=== PATIENT | male | born 1975 | race Caucasian/White ===

== ENCOUNTER 2020-06-26 21:26 | Emergency (ER) | payer SELFPAY ==
[2020-06-26 21:27] VITALS: BP 140/78; PULSE 87; RESP 18; TEMP 36.7; O2SAT 100; BMI 25.0
--- NOTE | 2020-06-26 21:30 | HMH.EDGENADL ---
ED Disposition Clinical Impression: Laceration Disposition: Home, Self-Care Condition on Discharge: Good Additional Instructions: Keep steri strips clean, dry, and in tact over the next several days. Return if concerns. Referrals: Girish Reyes MD [Primary Care Provider] - - Critical Care Critical Care Time: No Attestation: On , the high probability of a clinically significant, sudden or life threatening deterioration of the following system(s) required my full and direct attention, intervention and personal management. The time I documented below is in addition to time spent performing reported procedures but includes the following listed in this critical care notation. Medical Decision Making - Medical Records Medical records reviewed: Yes: I reviewed the patient's medical records. - Juvencio Inquiry Pt receiving controlled substance: No Medical Decision Narrative: Patient presents after sustaining a laceration to the left thumb. No reduced range of motion. Circulation, sensory, and motor intact to left thumb. Extensively explored after irrigation and is rather superficial. No indication for suture repair. Steri-Strips applied. Tetanus updated. Patient given instructions on appropriate wound care. He will follow up with PCP for recheck. He agrees. Return immediately if any redness/erythema at the site, pain at the site, reduced range of motion, or other new concerning symptoms. Assessment: Left thumb laceration status post Steri-Strip repair Tdap Disposition: Home with follow-up General Adult HPI - General Stated complaint: [id number] left thumb laceration Time Seen by Provider: 06/26/20 21:35 - History of Present Illness HPI narrative: Patient 45-year-old healthy male not up-to-date on tetanus presenting with laceration. 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 No reduced range of motion. No significant pain. No other injury sustained. Patient applied peroxide to the wound after it presents the emergency department to be evaluated for need for stitches. - Related Data Home Medications Medication Instructions Recorded Confirmed No Known Home Medications 06/12/20 06/12/20 Allergies Allergy/AdvReac Type Severity Reaction Status Date / Time penicillin G Allergy Mild Verified 06/12/20 13:01 [facility] History - Hepatitis A Screen Attestation statement:: This patient has been screened for Hepatitis A risk factors. Amputation: No Fractures: No Comment: rt Elbow - Social History Smoking Status: Current some day smoker Tobacco Type: cigarettes Alcohol Intake: current Alcohol Intake Frequency:: holidays/special occasions only Substance Use Type: denies use Occupational Status: employed Family Hx:: No significant family history ROS Obtained: Yes All systems reviewed & no additional complaints Physical Exam - General General appearance: alert, in no apparent distress - Head Head exam: atraumatic, normocephalic - Eye Eye exam: Present: normal appearance, PERRL - ENT ENT exam: Present: normal exam, normal oropharynx - Neck Neck exam: Present: normal inspection, full ROM - Chest Chest inspection: Present: normal inspection, symmetric chest wall rise - Respiratory Respiratory exam: Present: normal lung sounds bilaterally. Absent: respiratory distress - Cardiovascular Cardiovascular exam: Present: regular rate, normal rhythm - Abdominal Exam Abdominal exam: Present: soft. Absent: distention, tenderness - Extremities Exam Extremities exam: Present: normal inspection, full ROM, other (L thumb with 1 cm superficial laceration overlying dorsum of thumb base; no reduced ROM) - Neurological Exam Neurological exam: Present: alert, oriented X3 - Skin Skin exam: Present: warm, dry, other (see extremities) Procedures - Laceration Laceration 1 Site: thumb Side (If applicable): left Size
[2020-06-26 22:00] VITALS: BP 0/0; PULSE 0; RESP 0; TEMP -17.7; TEMP 0
--- NOTE | 2020-06-26 22:00 | PC.NURSE ---
pt and refused to stay for discharge paperwork and tetanus shot. MD notified
== END 2020-06-26 22:02 | disposition home or self-care (01) ==
PROVIDERS: Emergency Provider Emergency Medicine; PCP Family Medicine
DX: S61.012A Laceration without foreign body of left thumb without damage to nail, initial encounter (principal); W26.0XXA Contact with knife, initial encounter; Y92.9 Unspecified place or not applicable; F17.210 Nicotine dependence, cigarettes, uncomplicated
CPT/HCPCS: 99282

== ENCOUNTER → 2020-08-08 14:41 | Outpatient (CLI) | payer SELFPAY | PROVIDERS: PCP Family Medicine; Visit Provider Surgery | DX: Z01.812 Encounter for preprocedural laboratory examination (principal); Z11.52 Encounter for screening for COVID-19 | CPT/HCPCS: U0003 ==

== ENCOUNTER 2020-08-11 06:10 | Day surgery (SDC) | payer SELFPAY ==
[2020-08-06 10:38] VITALS: BMI 25.0
[2020-08-11] VITALS (8 sets, daily range): BP systolic 92–126; BP diastolic 42–79; PULSE 63–72; RESP 12–20; TEMP 36.1–36.6; O2SAT 95–100
--- NOTE | 2020-08-11 06:50 | HMH.ANESCL ---
[facility] Anesthesia Checklist - Patient Identification Patient Identification: Arm Band - Structural Data Admitted From: Home Planned Operative Procedure/s: Mass excision Consent for Planned Operative Procedure(s) Verified: Yes - NPO Status Verified Time NPO: 00:00 - Additional verifications Anesthesia Reactions: No Hx Blood Transfusions: No Blood Transfusion Reaction: No - Airway Assessment C-Spine Mobility Assessed: Yes TMJ Mobility Assessed: Yes Dentition: Good Dentition - Neurological Assessment Level of Consciousness: Awake Hx Seizures: No Numbness or tingling in extremities: No - Anesthesia Plan Anesthesia Risk discussed: Yes Anesthesia Plan: Verified ASA Class: II Anesthesia Type: General [facility] History I have reviewed the patient's past medical history: Yes Medical History: Reports:: Asthma Denies:: Cancer, Diabetes Mellitus Type 1, Diabetes Mellitus Type 2, Internal Pacemaker, MRSA, Seizures *Have you ever received a pneumonia vaccine?: No *Have you received a flu vaccine this season?: No Other Medical History: Denies: Blood Transfusion Reaction Anesthesia experience/problems:: None Laterality Cases: Right: Other Other Surgeries: No: Pacemaker Amputation: No Fractures: No - *Social History Last grade of school completed: High school graduate Smoking Status: Current every day smoker Tobacco Type: cigarettes # Packs/Day (cigarettes): 1 Alcohol Intake: current Alcohol Intake Frequency:: holidays/special occasions only Substance Use Type: denies use *Occupational Status:: employed Housing: house Household Members: spouse, children *Travel in the last 8 weeks: Inside the [employer] Family Hx:: Cancer
--- NOTE | 2020-08-11 08:00 | HMH.OPNOTE ---
Date of procedure: 08/11/20 Pre-op Diagnosis:: Lipoma right back Post-op Diagnosis:: Same Procedure performed:: Excision of lipoma from the right back (excisional length 5.0 cm) with intermediate complexity closure Surgeon:: Jose De Jesus Saeed MD POLYGRAPH EXAMINER:: Other Anesthesia: LMA Estimated blood loss (mL): 5 Clinical Note:: Patient is a 45-year-old male referred for lipoma on the right mid back by [employer] 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 He states that he has had a knot present for at least 5 years. It has increased in size and become symptomatic. Operative findings:: Consistent with lobular lipoma down to the muscle posterior to the fascia Operative note:: Patient was taken to the operating room. He was positioned supine position. General anesthesia was induced via LMA. The area was prepped and draped in the standard surgical fashion. Lesion was marked with a skin marker for planned incision. Incision was performed. Dissection was carried down through superficial subcutaneous tissues. Fascia was incised. It was lobulated lipoma encountered. This was somewhat adherent to the muscle and surrounding deep tissues. Using Metzenbaum and blunt dissection with some use of electrocautery it was dissected free. It appeared as though it was removed in its entirety and intact. Lesion was sent off as a specimen. Hemostasis was achieved with electrocautery. Wound was irrigated. Local anesthetic was infiltrated. 2-0 Vicryl suture was used to reapproximate the muscle fascia. Subcutaneous fascia was then closed with multiple interrupted 2-0 Vicryl. Skin was closed with 4-0 Monocryl in a subcuticular fashion. Steri-Strips and dressings were applied. Condition: stable Disposition: PACU Specimens:: Lipoma Complications:: None immediately apparent
--- NOTE | 2020-08-11 08:29 | PC.NURSE ---
0821-detailed report called to APRIL Lange 0801-pt transported to post op via stretcher w/sheryl rails up and left in care of APRIL Lange and APRIL Barnes with bed locked in lowest position, vss, pt stable
--- NOTE | 2020-08-11 15:39 | HMH.ANESI ---
[facility] Anesthesia Record Part I Intake, IV Amount: 1,000 Estimated blood loss (mL): 5 Urine output (mL): 0 Blood Pressure: 113/79 SaO2: 95 Pulse Rate: 72 Respiratory Rate: 12 Temperature: 97.0 F Patient is:: Awake, Drowsy Stable to PACU at:: 08:05
--- NOTE | 2020-08-12 12:19 | HMH.ANESII ---
[facility] Anesthesia Record Part II Discharge Time: 08:25 Destination: Surgical Day Care (OP Surgery) PACU nurse assessment reviewed?: Yes Patient Condition:: Good Anesthesia Complications:: None Swallowing reflex intact?: Yes Cyanosis?: No Blood Pressure: 101/66 Pulse Rate: 66 Temperature: 97.1 F Mental Status: Alert & Oriented Pain level:: 0 Nausea and/or vomitting:: None Intake, IV Amount: 0
[2020-08-12 12:20] VITALS: BP 101/66; PULSE 66; TEMP 36.2
== END 2020-08-11 08:49 | disposition home or self-care (01) ==
PROVIDERS: PCP Family Medicine; Visit Provider Surgery
PROC: (CPT 11406; principal; 2020-08-11 07:30)
DX: D17.1 Benign lipomatous neoplasm of skin and subcutaneous tissue of trunk (principal); J45.909 Unspecified asthma, uncomplicated; Z80.9 Family history of malignant neoplasm, unspecified; Z72.0 Tobacco use; Z88.0 Allergy status to penicillin
CPT/HCPCS: 11406; 12031; 96374; J2405

== ENCOUNTER 2021-01-01 07:42 | Emergency (ER) | payer SELFPAY ==
[2021-01-01 07:43] VITALS: BP 132/88; PULSE 79; RESP 18; TEMP 36.5; O2SAT 100; BMI 26.4
[2021-01-01 08:00] VITALS: BP 120/78; PULSE 72; RESP 13; O2SAT 98
--- NOTE | 2021-01-01 08:22 | CT_ITS ---
PROCEDURE: CT LUMBAR SPINE WO CON CLINICAL HISTORY: pain Low back pain radiating down right leg with right foot numbness COMPARISON: No exams were available for comparison TECHNIQUE: Axial images obtained with sagittal and coronal reformats. All CT scans at the facility use one or more dose reduction, viz: automated exposure control, ma/kV adjustment per patient size (including targeted exams where dose is matched to indication, i.e. head), or iterative reconstruction technique. FINDINGS: There is normal curvature and alignment. All lumbar vertebrae appear intact. There does appear to be mild generalized osteopenia. Disc spaces are well maintained throughout. The SI joints are normal. There is a small right paracentral disc protrusion L5-S1 level slightly compromising the right neural foramen at this level. The remaining discs all appear normal. There are no significant degenerative changes. IMPRESSION: Small to moderate-sized broad-based central and right paracentral disc protrusion L5-S1 Dictated by: Dr. Miguelito Hobbs MD 01/01/2021 09:24 Dr. Miguelito Hobbs MD in OV 01/01/2021 09:24
[2021-01-01 08:31] VITALS: BP 111/89; PULSE 83; RESP 15; O2SAT 97
--- NOTE | 2021-01-01 08:53 | HMH.EDGENADL ---
ED Disposition Clinical Impression: Lumbar disc herniation with radiculopathy Disposition: Home, Self-Care Condition on Discharge: Good Instructions: DI for Herniated Disc Prescriptions: Hydrocod/Acet 5/325 mg [Salem 5/325mg tablet] 1 tab PO Q6HP PRN 3 Days #12 tab PRN Reason: Moderate Pain Transmission Status: Sent to [facility] methocarbamoL [Methocarbamol] 750 mg PO QID 7 Days #28 tab Transmission Status: Pending to [facility] Referrals: Girish Reyes MD [Primary Care Provider] - - Critical Care Critical Care Time: No Attestation: On 01/01/21, the high probability of a clinically significant, sudden or life threatening deterioration of the following system(s) required my full and direct attention, intervention and personal management. The time I documented below is in addition to time spent performing reported procedures but includes the following listed in this critical care notation. Medical Decision Making - Medical Records Medical records reviewed: Yes: I reviewed the patient's medical records. - Juvencio Inquiry Pt receiving controlled substance: Yes Juvencio was queried for this patient: Yes Reference #:: [id number] Risks and benefits of using a controlled substance: were discussed with pt by me Vital Signs: 01/01/21 07:43 01/01/21 08:00 01/01/21 08:31 Temperature 97.7 F Temperature Source Oral Pulse Rate 72 83 Pulse Rate [Right Radial] 79 Respiratory Rate 18 13 15 Blood Pressure 120/78 111/89 Blood Pressure [Right Arm] 132/88 Blood Pressure Mean 92 94 Blood Pressure Mean [Right Arm] 102 Blood Pressure Source [Right Arm] Automatic Cuff Blood Pressure Position [Right Arm] Sitting 02 Sat by Pulse Oximetry 100 98 97 Oxygen Delivery Method Room Air 01/01/21 09:30 Temperature Temperature Source Pulse Rate 75 Pulse Rate [Right Radial] Respiratory Rate 12 Blood Pressure 112/79 Blood Pressure [Right Arm] Blood Pressure Mean 85 Blood Pressure Mean [Right Arm] Blood Pressure Source [Right Arm] Blood Pressure Position [Right Arm] 02 Sat by Pulse Oximetry 96 Oxygen Delivery Method Orders (Tests/Meds): ED MEDICATIONS Discontinued Medications Generic Name Dose Route Start Last Admin Trade Name Freq PRN Reason Stop Dose Admin Methocarbamol 1,000 mg 01/01/21 08:22 01/01/21 08:27 Methocarbamol 500mg Tablet PO 01/01/21 08:23 1,000 mg ONCE STA Administration Morphine Sulfate 4 mg 01/01/21 08:22 01/01/21 08:27 Morphine 2mg/Ml Syringe IM 01/01/21 08:23 4 mg ONCE ONE Administration - CT Data CT Scan: L-Spine Time Received: 09:[address] Reviewed: Yes: I have reviewed the patient's CT results, I have viewed the radiologist's interpretation Findings Narrative: IMPRESSION: Small to moderate-sized broad-based central and right paracentral disc protrusion L5-S1 - Reevaluation(s) Time: 09:51 Reevaluation #1: On reevaluation, patient's pain is improved. Does have evidence of herniated disc. Patient be discharged short course analgesics as well as muscle relaxers. Needs follow-up with PCP in 40 hours. Strict return precautions. Verbalized understanding. Medical Decision Narrative: 45-year-old male presenting with some lower back pain. Findings are consistent with lumbar strain, spasm and sciatica. There is no neuro deficit. Work-up initiated. General Adult HPI - General Chief complaint: PAIN Stated complaint: lower back pain/burning in rt leg/foot numb Time Seen by Provider: 01/01/21 07:50 Mode of Arrival: Wheelchair Limitations: No Limitations Description of Symptoms (Recalled from ER Triage Doc. by RN): Pt reports R lower back pain radiating down hip and into R foot. Pt reports R foot feeling tingling in nature. Pt describes pain as tight/cramping type of pain. Pt has been having lower back pain for some time , states pain has been worse this week. Pt states no injury. -
[2021-01-01 09:30] VITALS: BP 112/79; PULSE 75; RESP 12; O2SAT 96
[2021-01-01 10:00] VITALS: BP 110/70; PULSE 76; RESP 12; O2SAT 98
[2021-01-01 10:12] VITALS: BP 110/70; PULSE 70; RESP 18; TEMP 36.5; O2SAT 98
== END 2021-01-01 10:12 | disposition home or self-care (01) ==
PROVIDERS: Emergency Provider Emergency Medicine; PCP Family Medicine
DX: M51.16 Intervertebral disc disorders with radiculopathy, lumbar region (principal); F17.210 Nicotine dependence, cigarettes, uncomplicated; J45.909 Unspecified asthma, uncomplicated
CPT/HCPCS: 72131; 96372; 99282